=== PATIENT | male | born 1985 | race Caucasian/White ===

== ENCOUNTER 2018-04-18 01:48 | Emergency (ER) | payer OTHER ==
[~2018-04-18] VITALS: Ht 185.4 cm; Wt 77.1 kg
[2018-04-18 01:50] VITALS: BP_SYST 124
[2018-04-18 02:08] VITALS: BP_SYST 122
== END 2018-04-18 02:08 ==
LOC: SED 01:48
DX: Z02.89 Encounter for other administrative examinations (principal); V43.52XA Car driver injured in collision with other type car in traffic accident, initial encounter; Y93.89 Activity, other specified; Y92.410 Unspecified street and highway as the place of occurrence of the external cause; Y99.8 Other external cause status
CPT/HCPCS: 99283